=== PATIENT | female | born 1965 | race Caucasian/White ===

== ENCOUNTER → 2016-06-12 | Outpatient (CLI) | payer BC | LOC: CIMAGING 07:26 | PROVIDERS: ATTEND Family Medicine | DX: R51 Headache (principal); J34.2 Deviated nasal septum | CPT/HCPCS: 70220-PO ==

== ENCOUNTER → 2017-05-19 | Outpatient (CLI) | payer BC | LOC: CIMAGING 09:50 | PROVIDERS: ATTEND Family Medicine | DX: Z12.31 Encounter for screening mammogram for malignant neoplasm of breast (principal) ==